=== PATIENT | male | born 1955 | race Caucasian/White ===

== ENCOUNTER 2019-11-06 17:52 | Emergency (ER) | payer MEDICARE, MEDICAID ==
[2019-11-06 18:11] VITALS: BP 111/59; PULSE 72
[2019-11-06] MEDS ORDERED: Sodium Chloride 0.9% 10 ML Syringe FLUSH PRN (18:35)
[2019-11-06] MEDS ORDERED: Furosemide 40 MG/4 ML VIAL IVPUSH ONE (18:35)
--- NOTE | 2019-11-06 18:46 | EDM.PDOC ---
ED HPI GENERAL MEDICAL PROBLEM - General Chief Complaint: Cardiovascular Problem Stated Complaint: SOB / LOW GRADE FEVER / FILLING UP ON FLUID Time Seen by Provider: 11/06/19 18:15 Source of Information: Reports: Patient, Old Records History Limitations: Reports: Other (mild dementia) - History of Present Illness INITIAL COMMENTS - FREE TEXT/NARRATIVE: 64 yo male presents with an occasional dry cough, SOB(mild), and low grade fever. Called the clinic late in the day and was referred to the ER. Took and extra dose of his diuretic thinking he was fluid overloaded and didn't put out much urine. Has CHF and CRF. Thinks his weight is up. Has early Alzheimer's. Lives alone. no chest pain. Onset: Gradual Onset Date: 11/05/19 Duration: Day(s): (1+), Getting Worse Location: Reports: Chest (SOB) Quality: Reports: Other (no pain reported) Severity: Mild Improves with: Reports: None Worsens with: Reports: Other (? time) Context: Reports: Other (See HPI) Associated Symptoms: Reports: Confusion (chronic, mild), Cough (dry), Fever/ Chills (? 100F reported), Shortness of Breath (mild). Denies: Chest Pain, Diaphoresis, Headaches, Nausea/Vomiting, Rash, Syncope Treatments GRANT[employer] SPECIALIST: Reports: Other (see below) (See HPI) - Related Data Allergies Allergy/AdvReac Type Severity Reaction Status Date / Time gabapentin [From Neurontin] Allergy Fever Verified 08/03/19 08:36 latex Allergy Hives Verified 08/03/19 08:36 baby oil Allergy Hives Uncoded 08/03/19 08:36 tape AdvReac Rash Uncoded 08/03/19 08:36 Home Meds: Home Meds Insulin Detemir [Levemir] 20 unit SQ DAILY 05/25/13 [History] Insulin Detemir [Levemir] 25 unit SQ BEDTIME 05/25/13 [History] Insulin Lispro [Humalog] 1 unit SQ TID 05/25/13 [History] LORazepam [Ativan] 1 mg PO TID PRN 05/25/13 [History] Metoprolol Tartrate [Lopressor] 50 mg PO BID 05/25/13 [History] Omeprazole 20 mg PO BID 05/25/13 [History] Simvastatin [Zocor] 20 mg PO BEDTIME 05/25/13 [History] predniSONE 5 mg PO DAILY 05/25/13 [History] traZODone 300 mg PO DAILY 05/25/13 [History] Albuterol Sulfate [Proair Hfa] 2 puff IH QID 11/14/13 [History] FA/Lycopene/Lut/MV,Ca,Iron,Min [Centrum] 1 tab PO DAILY 11/14/13 [History] Lisinopril [Zestril] 20 mg PO DAILY 11/14/13 [History] Aspirin [Halfprin] 81 mg PO DAILY 10/17/15 [History] Mirtazapine [Remeron] 45 mg PO BEDTIME 10/17/15 [History] Morphine [MS Contin] 15 mg PO Q12H 10/17/15 [History] Nitroglycerin [Nitrostat] 0.4 mg SL ASDIRECTED 10/17/15 [History] Cholecalciferol (Vitamin D3) [Vitamin D3] 400 units PO DAILY 10/18/15 [History] Donepezil [Aricept] 15 mg PO BEDTIME 04/19/18 [History] Spironolactone [Aldactone] 12.5 mg PO DAILY 04/19/18 [History] Torsemide [Demadex] 20 mg PO DAILY 04/19/18 [History] tiZANidine [Zanaflex] 8 mg PO Q8H PRN 04/19/18 [History] Cholestyramine/Aspartame [Questran Light Powder] 4 gm PO DAILY 07/31/19 [History ] Cholestyramine/Aspartame [Questran Light Powder] 4 gm PO DAILY 07/31/19 [History ] Loperamide HCl [Imodium A-D] 2 mg PO QID PRN 07/31/19 [History] ondansetron HCL [Zofran] 4 mg PO TID PRN 07/31/19 [History] Acetaminophen/HYDROcodone [[place] 325-7.5 MG] 1 tab PO DAILY PRN 11/06/19 [ History] Amoxicillin 875 mg PO BID #15 tab 11/06/19 [Rx] Mirtazapine 45 mg PO BEDTIME 11/06/19 [History] Zolpidem Tartrate 10 mg PO BEDTIME PRN 11/06/19 [History] hydrOXYzine HCL [hydrOXYzine] 10 mg PO DAILY PRN 11/06/19 [History] Past Medical History HEENT History: Reports: Cataract, Hard of Hearing Cardiovascular History: Reports: Arrhythmia, Heart Failure, High Cholesterol, Hypertension, [place] Respiratory History: Reports: Asthma, Pneumonia, Recurrent Gastrointestinal History: Reports: Hemorrhoids Genitourinary History: Reports: BPH, Other (See Below) Other Genitourinary History: cyst on left kidney Musculoskeletal History: Reports: Back Pain, Chronic, Other (See Below) Other Musculoskeletal History: bilateral hip pain Neurological History: Reports: CVA Psychiatric History: Reports: Anxiety, Depression Endocrine/Metabolic History: Reports: Diabetes, Type I Hematologic History: Reports: Iron Deficiency Oncologic (Cancer) History: Reports: Other (See Below) Other Oncologic History: skin Dermatologic History: Reports: Other (See Below) Other Dermatologic History: skin CA - Infectious Disease History Infectious Disease History: Reports: Measles - Past Surgical History Cardiovascular Surgical History: Reports: Coronary Artery Bypass, Coronary Artery Stent GI Surgical History: Reports: Cholecystectomy, Colonoscopy Other Male Surgeries/Procedures: States he now has kidnye problems after completing a stress test. Social & Family History - Caffeine Use Caffeine Use: Reports: Coffee - Recreational Drug Use Recreational Drug Use: No ED ROS GENERAL - Review of Systems Review Of Systems: See Below Constitutional: Reports: Fever (100F reported), Malaise. Denies: Chills, Diaphoresis HEENT: Reports: No Symptoms Respiratory: Reports: Shortness of Breath (mild), Cough (dry). Denies: Wheezing , Pleuritic Chest Pain, Sputum, Hemoptysis Cardiovascular: Reports: No Symptoms GI/Abdominal: Reports: No Symptoms : Reports: No Symptoms Musculoskeletal: Reports: No Symptoms Skin: Reports: No Symptoms Neurological: Reports: No Symptoms Psychiatric: Reports: No Symptoms ED EXAM, GENERAL - Physical Exam Exam: See Below Exam Limited By: No Limitations General Appearance: Alert, WD/WN, No Apparent Distress Eye Exam: Bilateral Eye: Normal Inspection Ears: Normal External Exam, Normal Canal, Hearing Grossly Normal, Normal TMs Ear Exam: Bilateral Ear: Auricle Normal, Canal Normal, TM normal Nose: Normal Inspection, No Blood Throat/Mouth: Normal Inspection, Normal Lips, Normal Oropharynx, Normal Voice, No Airway Compromise Head: Atraumatic, Normocephalic Neck: Normal Inspection Respiratory/Chest: No Respiratory Distress, Lungs Clear, Normal Breath Sounds, No Accessory Muscle Use. No: Decreased Breath Sounds, Crackles, Rales, Rhonchi , Wheezing Cardiovascular: Regular Rate, Rhythm, No Edema. No: Tachycardia GI/Abdominal: Normal Bowel Sounds, Soft, Non-Tender, No Distention Back Exam: Normal Inspection. No: CVA Tenderness (R), CVA Tenderness (L) Extremities: Normal Inspection, Normal Range of Motion, Non-Tender, No Pedal Edema. No: Pedal Edema Neurological: Alert, Oriented, CN II-XII Intact, Normal Cognition, No Motor/ Sensory Deficits, Other (slow mentation) Psychiatric: Normal Affect, Normal Mood Skin Exam: Warm, Dry, Intact, Normal Color, No Rash Course - Vital Signs Last Recorded V/S: Last Vital Signs Temp 37.4 C 11/06/19 18:12 Pulse 72 11/06/19 18:12 Resp 12 11/06/19 18:12 BP 111/59 L 11/06/19 18:12 Pulse Ox 98 11/06/19 18:12 - Orders/Labs/Meds Orders: Active Orders 24 hr Category Date Time Status Chest 2V [CR] Stat Exams 11/06/19 19:25 Ordered UA W/MICROSCOPIC [URIN] Stat Lab 11/06/19 18:41 Ordered Sodium Chloride 0.9% [Saline Flush] Med 11/06/19 18:35 Active 10 ml FLUSH ASDIRECTED PRN Saline Lock Insert [OM.PC] Routine Oth 11/06/19 18:35 Ordered Medication Orders Sodium Chloride (Saline Flush) 10 ml FLUSH ASDIRECTED PRN PRN Reason: Keep Vein Open Labs: Laboratory Tests 11/06/19 11/06/19 11/06/19 Range/Units 18:43 18:43 18:43 WBC 12.3 H (4.5-11.0) K/uL RBC 4.65 (4.30-5.90) M/uL Hgb 14.5 (12.0-15.0) g/dL Hct 44.2 (40.0-54.0) % MCV 95 (80-98) fL MCH 31 (27-31) pg MCHC 33 (32-36) % Plt Count 234 (150-400) K/uL Sodium 134 L (140-148) mmol/L Potassium 4.6 (3.6-5.2) mmol/L Chloride 97 L (100-108) mmol/L Carbon Dioxide 28 (21-32) mmol/L Anion Gap 13.6 (5.0-14.0) mmol/L BUN 17 (7-18) mg/dL Creatinine 1.6 H (0.8-1.3) mg/dL Est Cr Clr Drug Dosing 50.98 mL/min Estimated GFR (MDRD) 44 L (>60) Glucose 157 H (74-106) mg/dL Calcium 8.6 (8.5-10.1) mg/dL Troponin I < 0.017 (0.000-0.056) ng/mL Meds: Medications Generic Name Dose Route Start Last Admin Trade Name Freq PRN Reason Stop Dose Admin Sodium Chloride 10 ml 11/06/19 18:35 Saline Flush FLUSH ASDIRECTED PRN Keep Vein Open Discontinued Medications Generic Name Dose Route Start Last Admin Trade Name Freq PRN Reason Stop Dose Admin Furosemide 80 mg 11/06/19 18:35 11/06/19 18:45 Lasix IVPUSH 11/06/19 18:36 Not Given ONETIME ONE - Radiology Interpretation Free Text/Narrative:: CXR-atelectasis vs infiltrate L heart border Departure - Departure Time of Disposition: 20:05 Disposition: Home, Self-Care 01 Condition: Fair Clinical Impression: Pneumonia Qualifiers: Pneumonia type: due to unspecified organism Laterality: left Lung location: unspecified part of lung Qualified Code(s): J18.9 - Pneumonia, unspecified organism Instructions: Community-Acquired Pneumonia, Adult, [id number] Referrals: Wilmer Ochoa MD [Primary Care Provider] - Forms: ED Department Discharge Additional Instructions: Take Amoxicillin every 12 hrs. Recheck with your doctor later this week. Return as needed. Continue your usual meds as before. Avoid salt. Sepsis Event Note - Evaluation Sepsis Screening Result: No Definite Risk - Focused Exam Vital Signs: Vital Signs Temp Pulse Resp BP Pulse Ox 11/06/19 18:12 37.4 C 72 12 111/59 L 98 11/06/19 18:10 37.4 C 72 12 111/59 L 98 Date Exam was Performed: 11/06/19 Time Exam was Performed: 20:00 - My Orders Last 24 Hours: My Active Orders 11/06/19 18:35 Sodium Chloride 0.9% [Saline Flush] 10 ml FLUSH ASDIRECTED PRN Saline Lock Insert [OM.PC] Routine 11/06/19 18:41 UA W/MICROSCOPIC [URIN] Stat 11/06/19 19:25 Chest 2V [CR] Stat - Assessment/Plan Last 24 Hours: My Active Orders 11/06/19 18:35 Sodium Chloride 0.9% [Saline Flush] 10 ml FLUSH ASDIRECTED PRN Saline Lock Insert [OM.PC] Routine 11/06/19 18:41 UA W/MICROSCOPIC [URIN] Stat 11/06/19 19:25 Chest 2V [CR] Stat
[2019-11-06] MEDS ORDERED: Amoxicillin 875 MG Tab PO ONE (20:01)
--- NOTE | 2019-11-06 20:21 | CRLCR ---
Indication: Shortness of breath Technique: Chest 2 views Comparison: None Findings: Cardiovascular and mediastinum: Heart size and vasculature are normal in caliber and appearance. Lungs and pleural spaces: Ill-defined opacity in the lingula is somewhat linear. Remainder of the lungs and pleural spaces are clear. Bones and soft tissues: Compression fractures are present at T11 and L1. Impression: Scarring favored over pneumonia in the lingula. Remainder of the chest is unremarkable. Dictated by Nile Dsouza MD @ 11/06/2019 8:20:38 PM Dictated by: Nile Dsouza MD @ 11/06/2019 20:20:45 (Electronically Signed)
== END 2019-11-06 20:17 | disposition home or self-care (01) ==
LOC: JP.ED 17:52
DX: J18.9 Pneumonia, unspecified organism (principal); Z79.4 Long term (current) use of insulin; Z79.899 Other long term (current) drug therapy; Z79.82 Long term (current) use of aspirin; I11.0 Hypertensive heart disease with heart failure; I50.9 Heart failure, unspecified; I25.2 Old myocardial infarction; Z86.73 Personal history of transient ischemic attack (TIA), and cerebral infarction without residual deficits; E10.9 Type 1 diabetes mellitus without complications; F41.9 Anxiety disorder, unspecified; F32.9 Major depressive disorder, single episode, unspecified; Z95.5 Presence of coronary angioplasty implant and graft
CPT/HCPCS: 36415; 71046; 80048; 84484; 85027; 99283; A9270